=== PATIENT | female | born 1970 | race Caucasian/White ===

== ENCOUNTER 2019-06-17 11:40 | Inpatient (IN) | payer OTHER ==
[~2019-06-17] VITALS: Ht 162.6 cm; Wt 51.0 kg
[~2019-06-17 11:40] MED LIST: CLIN300 PO; DIAZ5; DIAZ5 PO; HYDACE5 PO; METHI10 PO; NAPR500; NAPR500 PO; OXYACE5T PO; OXYACE7.5T PO; PROP80; PROP80ER PO; RXOXYACE PO; TOBDEXOPSU OD; ZOLP10; ZOLP10 PO
[2019-06-17] MEDS ORDERED: Humalog100 UNIT/1 SC (11:58)
[2019-06-17 12:27] LABS: Base Excess Venous -24.7 mmol/L; Bicarbonate Venous 8.9 mmol/L (24.0-30.0); PCO2 Venous 34.2 mmHg (38-42); PO2 Venous 59.6 mmHg (38-42)
[2019-06-17 12:28] LABS: pH Blood Venous 6.95 (7.34-7.37)
[2019-06-17 12:37] LABS: BASOPHILS ABSOLUTE AUTO 0.09 K/mm3 (0.00-0.23); BASOPHILS PERCENT AUTO 0 % (0-2); EOSINOPHILS PERCENT AUTO 0 % (0-6); Hematocrit 53.8 % (33.0-51.0); Hemoglobin 17.8 g/dL (11.5-16.0); IMMATURE GRAN ABSOLUTE AUTO 0.18 K/mm3 (0.00-0.10); IMMATURE GRAN PERCENT AUTO 1 % (0-1); LYMPHOCYTES PERCENT AUTO 6 % (21-46); MONOCYTES ABSOLUTE AUTO 0.62 K/mm3 (0.16-1.47); MONOCYTES PERCENT AUTO 3 % (4-13); Mean Corpuscular HGB 30.8 pg (26.0-34.0); Mean Corpuscular HGB Conc 33.1 g/dL (31.5-36.5); Mean Corpuscular Volume 93 fL (80-100); Mean Platelet Volume 9.8 fL (9.1-12.4); NEUTROPHILS ABSOLUTE AUTO 22.86 K/mm3 (1.96-9.15); NEUTROPHILS PERCENT AUTO 91 % (41-73); Platelet Count 466 K/mm3 (150-400); RDW Coefficient Variation 11.9 % (11.7-14.2); RDW Standard Deviation 40.8 fL (35.1-46.3); Red Blood Cell Count 5.77 M/mm3 (3.80-5.20); White Blood Cell Count 25.25 K/mm3 (4.00-11.30)
[2019-06-17 13:03] LABS: Alanine Aminotransfer (ALT/SGP 57 U/L (12-78); Albumin, Blood 4.6 g/dL (3.4-5.0); Albumin/Globulin Ratio 1.1 (0.8-1.8); Alk Phos 178 U/L (50-136); Anion Gap 30 mmol/L (6-16); Aspartate Aminotrans (AST/SGOT 24 U/L (12-37); Beta-hydroxybutyrate 114.1 mg/dL (0.2-2.8); Bilirubin, Total 0.7 mg/dL (0.1-1.0); Blood Urea Nitrogen 30 mg/dL (8-24); Bun/Creatinine Ratio 31.2 (12.0-20.0); CO2, Blood 8 mmol/L (21-32); Calcium, Blood 10.1 mg/dL (8.5-10.1); Chloride, Blood 91 mmol/L (98-108); Creatinine, Blood 0.96 mg/dL (0.40-1.00); Globulin, Blood 4.1 g/dL (2.2-4.0); Glomerular Filtration Rate >60 (60-); Glucose, Blood 509 mg/dL (70-99); Potassium, Blood 4.3 mmol/L (3.5-5.5); Sodium, Blood 129 mmol/L (136-145); Total Protein, Blood 8.7 g/dL (6.4-8.2)
[2019-06-17] MEDS ORDERED: INSDET100 SC (13:18)
[2019-06-17 14:39] LABS: Source, Urine Clean Catch
[2019-06-17 14:46] LABS: Bilirubin, Urine Neg (Neg); Blood, Urine 3+ (Neg); Glucose Qualitative, Urine 4+ (Neg); Ketones, Urine 4+ (Neg); Leukocyte Esterase, Urine Neg (Neg); Nitrite, Urine Neg (Neg); Protein, Urine 2+ (Neg); Urobilinogen, Urine NORM (Normal)
[2019-06-17 14:53] LABS: Appearance, Urine Clear (Clear); Color, Urine Pale Yellow (P-Yellow)
[2019-06-17 14:54] LABS: White Blood Cells, Urine 0-2 /hpf (0-5)
[2019-06-17 14:55] LABS: Bacteria Rare /hpf; Mucus Light (0-Heavy); Red Blood Cells, Urine 0-2 /hpf (0-2); Squamous Epithelial Cells Few /hpf (Few)
[2019-06-17 15:23] LABS: Magnesium, Blood 1.7 mg/dL (1.6-2.4)
[2019-06-17 15:28] LABS: Anion Gap 26 mmol/L (6-16); Blood Urea Nitrogen 27 mg/dL (8-24); Bun/Creatinine Ratio 36.4 (12.0-20.0); CO2, Blood 7 mmol/L (21-32); Calcium, Blood 8.3 mg/dL (8.5-10.1); Chloride, Blood 104 mmol/L (98-108); Creatinine, Blood 0.74 mg/dL (0.40-1.00); Glomerular Filtration Rate >60 (60-); Glucose, Blood 409 mg/dL (70-99); Potassium, Blood 3.7 mmol/L (3.5-5.5); Sodium, Blood 137 mmol/L (136-145)
[2019-06-17 17:18] LABS: Anion Gap 25 mmol/L (6-16); Blood Urea Nitrogen 26 mg/dL (8-24); Bun/Creatinine Ratio 35.6 (12.0-20.0); CO2, Blood 10 mmol/L (21-32); Calcium, Blood 8.7 mg/dL (8.5-10.1); Chloride, Blood 106 mmol/L (98-108); Creatinine, Blood 0.73 mg/dL (0.40-1.00); Glomerular Filtration Rate >60 (60-); Glucose, Blood 345 mg/dL (70-99); Potassium, Blood 3.7 mmol/L (3.5-5.5); Sodium, Blood 141 mmol/L (136-145)
[2019-06-17 19:13] LABS: Anion Gap 17 mmol/L (6-16); Blood Urea Nitrogen 24 mg/dL (8-24); Bun/Creatinine Ratio 38.8 (12.0-20.0); CO2, Blood 12 mmol/L (21-32); Calcium, Blood 8.7 mg/dL (8.5-10.1); Chloride, Blood 111 mmol/L (98-108); Creatinine, Blood 0.62 mg/dL (0.40-1.00); Glomerular Filtration Rate >60 (60-); Glucose, Blood 266 mg/dL (70-99); Potassium, Blood 3.6 mmol/L (3.5-5.5); Sodium, Blood 140 mmol/L (136-145)
--- NOTE | 2019-06-17 19:58 | NUR ---
SHIFT SUMMARY: NO ACUTE DISTRESS NOTED SINCE ARIVAL TO THE UNIT PT BLOOD SUGARS CONTINUE TO COME DOWN AND LABS APPEAR TO BE IMPROVING. INSULIN DRIPP IS CONTINUEING AT 4 UNITS/HR. NS /C 20KCL IS RUNNING AT 200ML/HR. REPORT GIVEN TO RJ MCKENNA.
[2019-06-17 21:15] LABS: Anion Gap 12 mmol/L (6-16); Blood Urea Nitrogen 20 mg/dL (8-24); Bun/Creatinine Ratio 32.1 (12.0-20.0); CO2, Blood 19 mmol/L (21-32); Calcium, Blood 8.2 mg/dL (8.5-10.1); Chloride, Blood 112 mmol/L (98-108); Creatinine, Blood 0.62 mg/dL (0.40-1.00); Glomerular Filtration Rate >60 (60-); Glucose, Blood 183 mg/dL (70-99); Potassium, Blood 3.5 mmol/L (3.5-5.5); Sodium, Blood 143 mmol/L (136-145)
--- NOTE | 2019-06-17 21:24 | NUR ---
CARE ASSUMED REPORT RECEIVED, CARE ASSUMED AT 1900 FROM BALA ROBERSON. PT REMAINS ON INSULIN DRIP, SEE FLOWSHEET FOR TITRATIONS. NS CHANGED TO D5 1/2 NS WITH POTASSIUM TO MAINTAIN BLOOD SUGARS. BP BORDERLINE, WILL CONTINUE TO MONITOR CLOSELY. OTHERWISE, VITALS STABLE. PT DENIES PAIN/DISCOMFORT, IS VERY DROWSY AND MINIMALLY INTERACTIVE BUT DOES AROUSE WHEN REQUESTED AND IS ORIENTED. STANDBY ASSIST TO BEDSIDE COMMODE FOR URINATION. AGREES TO CALL FOR NEEDS. CALL LIGHT IN REACH.
--- NOTE | 2019-06-17 22:47 | NUR ---
BLOOD PRESSURE PT'S BLOOD PRESSURE BORDERLINE, MULTIPLE MAPS LESS THAN 65. DISCUSSED WITH DR. LEARY. ONE 500 ML BOLUS GIVEN AND BPS IMPROVED.
[2019-06-17 23:04] LABS: Anion Gap 10 mmol/L (6-16); Blood Urea Nitrogen 19 mg/dL (8-24); Bun/Creatinine Ratio 33.8 (12.0-20.0); CO2, Blood 21 mmol/L (21-32); Calcium, Blood 8.2 mg/dL (8.5-10.1); Chloride, Blood 112 mmol/L (98-108); Creatinine, Blood 0.56 mg/dL (0.40-1.00); Glomerular Filtration Rate >60 (60-); Glucose, Blood 179 mg/dL (70-99); Potassium, Blood 3.5 mmol/L (3.5-5.5); Sodium, Blood 143 mmol/L (136-145)
--- NOTE | 2019-06-18 00:56 | NUR ---
BLOOD PRESSURE PT'S MAP'S NOTED TO BE CONSISTENTLY IN HIGH 50'S. PT CONTINUES TO BE DROWSY, BUT AROUSES WITH VERBAL STIMULI, IS ORIENTED, FOLLOWS COMMANDS AND IS ABLE TO SIT NEEDED. DR. REIS NOTIFIED OF DECREASED MAP'S. NEW ORDER RECEIVED.
[2019-06-18 01:13] LABS: Anion Gap 8 mmol/L (6-16); Blood Urea Nitrogen 17 mg/dL (8-24); Bun/Creatinine Ratio 37.4 (12.0-20.0); CO2, Blood 21 mmol/L (21-32); Calcium, Blood 8.2 mg/dL (8.5-10.1); Chloride, Blood 111 mmol/L (98-108); Creatinine, Blood 0.45 mg/dL (0.40-1.00); Glomerular Filtration Rate >60 (60-); Glucose, Blood 178 mg/dL (70-99); Potassium, Blood 3.3 mmol/L (3.5-5.5); Sodium, Blood 140 mmol/L (136-145)
[2019-06-18 03:19] LABS: BASOPHILS ABSOLUTE AUTO 0.02 K/mm3 (0.00-0.23); BASOPHILS PERCENT AUTO 0 % (0-2); EOSINOPHILS PERCENT AUTO 0 % (0-6); Hematocrit 36.9 % (33.0-51.0); IMMATURE GRAN ABSOLUTE AUTO 0.08 K/mm3 (0.00-0.10); IMMATURE GRAN PERCENT AUTO 0 % (0-1); LYMPHOCYTES ABSOLUTE AUTO 3.01 K/mm3 (0.84-5.20); LYMPHOCYTES PERCENT AUTO 16 % (21-46); MONOCYTES ABSOLUTE AUTO 1.09 K/mm3 (0.16-1.47); MONOCYTES PERCENT AUTO 6 % (4-13); Mean Corpuscular HGB 30.5 pg (26.0-34.0); Mean Corpuscular HGB Conc 35.2 g/dL (31.5-36.5); Mean Corpuscular Volume 87 fL (80-100); NEUTROPHILS ABSOLUTE AUTO 14.38 K/mm3 (1.96-9.15); NEUTROPHILS PERCENT AUTO 77 % (41-73); Platelet Count 296 K/mm3 (150-400); RDW Coefficient Variation 11.8 % (11.7-14.2); RDW Standard Deviation 37.3 fL (35.1-46.3); Red Blood Cell Count 4.26 M/mm3 (3.80-5.20); White Blood Cell Count 18.58 K/mm3 (4.00-11.30)
[2019-06-18 03:40] LABS: Anion Gap 8 mmol/L (6-16); Blood Urea Nitrogen 16 mg/dL (8-24); Bun/Creatinine Ratio 31.2 (12.0-20.0); CO2, Blood 23 mmol/L (21-32); Calcium, Blood 8.3 mg/dL (8.5-10.1); Chloride, Blood 110 mmol/L (98-108); Creatinine, Blood 0.51 mg/dL (0.40-1.00); Glomerular Filtration Rate >60 (60-); Glucose, Blood 152 mg/dL (70-99); Potassium, Blood 3.2 mmol/L (3.5-5.5); Sodium, Blood 141 mmol/L (136-145)
--- NOTE | 2019-06-18 05:22 | NUR ---
BLOOD PRESSURE PT'S MAP CONTINUE TO BE HIGH 50'S AND LOW 60'S. PT DROWSY, BUT AROUSES AND ORIENTED. PT HAS BEEN UP TO BEDSIDE COMMODE WITH NO DIZZINESS OR SHORTNESS OF BREATH. HR STABLE. DR. REIS UPDATED, WILL CONTINUE TO MONITOR CLOSELY.
--- NOTE | 2019-06-18 06:21 | NUR ---
SUMMARY SEE LABS FOR DKA PROGRESS. CONTINUED WITH INSULIN DRIP AND D5 1/2 NS WITH POTASSIUM TO MAINTAIN UNTIL MORNING LONG ACTING INSULIN DOSE. PT CONTINUES TO BE DROWSY BUT AROUSES EASILY AND IS ORIENTED AND APPROPRIATE. VITALS CONTINUE TO BE STABLE WITH BORDERLINE BLOOD PRESSURE DISCUSSED PREVIOUSLY. INCREASED FLUIDS PER ORDERS TO MANAGE PRESSURES. SEE FLOWSHEETS/EMAR FOR DETAILS.
--- NOTE | 2019-06-18 07:15 | NUR ---
REPORT TO BALA ROBERSON TO ASSUME CARE.
--- NOTE | 2019-06-18 10:30 | NUR ---
INSULIN & D5W1/2NS /C KCL OFF AT THIS TIME
[2019-06-18 12:33] LABS: Anion Gap 7 mmol/L (6-16); Blood Urea Nitrogen 12 mg/dL (8-24); Bun/Creatinine Ratio 27.3 (12.0-20.0); CO2, Blood 24 mmol/L (21-32); Calcium, Blood 8.8 mg/dL (8.5-10.1); Chloride, Blood 106 mmol/L (98-108); Creatinine, Blood 0.44 mg/dL (0.40-1.00); Glomerular Filtration Rate >60 (60-); Glucose, Blood 268 mg/dL (70-99); Magnesium, Blood 1.6 mg/dL (1.6-2.4); Potassium, Blood 3.9 mmol/L (3.5-5.5); Sodium, Blood 137 mmol/L (136-145)
--- NOTE | 2019-06-18 13:10 | NUR ---
ASSUMED CARE: PT RESTING QUIETLY IN BED, NO ACUTE DISTRESS OR NEEDS NOTED.
--- NOTE | 2019-06-18 16:56 | NUR ---
HANDED OFF CARE TO BALA PAULA. PT HAS BEEN RESTING QUIETLY THIS SHIFT, NS @125 RUNNING. PT HAS BEEN DROWSY AND RESTING BUT ALERT AND ORIENTED AND FOLLOWING DIRECTIONS.
--- NOTE | 2019-06-18 19:14 | NUR ---
Assumed care of the patient at time of transfer from ICU 14 to PCU 6. She is alert, oriented, not very talkative, but appropriate. Seems that she is more interested in napping than other activities. Sat up in bed for dinner, but declined to sit on the side of the bed or to sit in the chair for the meal. Ambulatory to the bathroom with minimal assistace due to the IV pole with continuous IV fluid infusion. Taking in p.o. fluids and food with good appetite. No c/o pain or discomfort.
[2019-06-19 03:56] LABS: BASOPHILS ABSOLUTE AUTO 0.01 K/mm3 (0.00-0.23); BASOPHILS PERCENT AUTO 0 % (0-2); EOSINOPHILS ABSOLUTE AUTO 0.04 K/mm3 (0.00-0.68); EOSINOPHILS PERCENT AUTO 1 % (0-6); Hematocrit 34.3 % (33.0-51.0); Hemoglobin 11.9 g/dL (11.5-16.0); IMMATURE GRAN ABSOLUTE AUTO 0.01 K/mm3 (0.00-0.10); IMMATURE GRAN PERCENT AUTO 0 % (0-1); LYMPHOCYTES ABSOLUTE AUTO 2.53 K/mm3 (0.84-5.20); LYMPHOCYTES PERCENT AUTO 29 % (21-46); MONOCYTES ABSOLUTE AUTO 0.39 K/mm3 (0.16-1.47); MONOCYTES PERCENT AUTO 5 % (4-13); Mean Corpuscular HGB 30.8 pg (26.0-34.0); Mean Corpuscular HGB Conc 34.7 g/dL (31.5-36.5); Mean Corpuscular Volume 89 fL (80-100); Mean Platelet Volume 9.4 fL (9.1-12.4); NEUTROPHILS ABSOLUTE AUTO 5.78 K/mm3 (1.96-9.15); NEUTROPHILS PERCENT AUTO 66 % (41-73); Platelet Count 205 K/mm3 (150-400); RDW Coefficient Variation 11.9 % (11.7-14.2); RDW Standard Deviation 38.3 fL (35.1-46.3); Red Blood Cell Count 3.86 M/mm3 (3.80-5.20); White Blood Cell Count 8.76 K/mm3 (4.00-11.30)
[2019-06-19 04:17] LABS: Anion Gap 5 mmol/L (6-16); Blood Urea Nitrogen 8 mg/dL (8-24); Bun/Creatinine Ratio 21.4 (12.0-20.0); CO2, Blood 29 mmol/L (21-32); Calcium, Blood 8.8 mg/dL (8.5-10.1); Chloride, Blood 108 mmol/L (98-108); Creatinine, Blood 0.37 mg/dL (0.40-1.00); Glomerular Filtration Rate >60 (60-); Glucose, Blood 155 mg/dL (70-99); Potassium, Blood 3.2 mmol/L (3.5-5.5); Sodium, Blood 142 mmol/L (136-145)
--- NOTE | 2019-06-19 06:10 | NUR ---
END OF SHIFT SUMMARY PT ALERT AND ORIENTED T/O SHIFT, WITHDRAW,. PT HAS NOT SPOKEN MUCH WITH THIS RN. PT HAS STATED FEELING VERY WEAK. PT EXTREMELY THIRSTY AND HAS VOIDED LARGE AMOUNTS OF URINE. LUNGS CLEAR T/O. HEART MURMUR PRESEMNT. PT HAS PRESENTED WITH KAVYAN, UPON LOOKING AT VS HX, THIS FOLLOWS THE SAME TREND OT HAS. LAST BP DID SHOW IMPROVEMENT@ 105/59. PT CONTINUES TO RECEIVE IV FLUIDS. RECEIVING INSULIN ACHS. CBG SHOWING IMPROVEMENT, 100;S TO 200'S. PT USES CALL LIGHT APPROPRIATELY. CALL LIGHT WITHIN REACH. CHARLIE LCONTINUE TO MONITOR PT UNTIL SHIFT CHANGE.
--- NOTE | 2019-06-19 07:21 | NUR ---
ASSUMED CARE: PT RESTING QUIETLY IN BED. NO ACUTE NEEDS OR CONCERNS NOTED AT THIS TIME
[2019-06-19] MEDS ORDERED: ACET325 PO (09:13)
--- NOTE | 2019-06-19 10:55 | NUR ---
PT'S DAUGHTER DID NOT BRING PT'S HOME GLUCOSE MONITOR. CALL TO DR HIGGINS TO MAKE HER AWARE. DR WROTE NEW SCRIPT FOR GLUCOSE METER. PT MADE AWARE TO ESTABLISH PCP AND FOLLOW UP WITH DR BROWN. MEDICATIONS CALLED TO [facility]. TAX APPRAISER VERIFIED THAT PT USES PENS AT HOME AND HAS NEEDLES AVAILABLE. IV'S DC'D WNL.
== END 2019-06-19 10:41 | disposition home or self-care (01) | DRG 638 ==
LOC: ER 11:40 → ICUW 13:56 → MEDS 13:56 → PCU 14:55 → ICUW 14:59 → PCU 06-18 17:25
PROVIDERS: Emergency Medicine; Internal Medicine; ADMIT Hospitalist
DX: E11.10 Type 2 diabetes mellitus with ketoacidosis without coma (principal); E87.1 Hypo-osmolality and hyponatremia; E11.65 Type 2 diabetes mellitus with hyperglycemia; E87.6 Hypokalemia; E86.1 Hypovolemia; I95.9 Hypotension, unspecified; F17.210 Nicotine dependence, cigarettes, uncomplicated; Z79.4 Long term (current) use of insulin
CPT/HCPCS: 36415; 80048; 80053; 81001; 82010; 82803; 82947; 83036; 83735; 85025; 93005; 93010; 96361; 96374; 99285-25; J1650; J1815; J2405; J3480; J7030; J7040; J7120

== ENCOUNTER → 2019-12-22 | Outpatient (CLI) | payer OTHER ==
[~2019-12-22] MED LIST changes: +ACET325 PO; +Humalog100 UNIT/1 SC; +INSDET100 SC
== END ==
LOC: OLS 11:08 → LAB SHORT 11:08
DX: E10.65 Type 1 diabetes mellitus with hyperglycemia (principal)
CPT/HCPCS: 82043

== ENCOUNTER → 2020-04-02 | Outpatient (CLI) | payer OTHER ==
[2020-04-23 04:39] LABS: HPV 16 Negative (Negative); HPV 18 Negative (Negative); HPV OTHER HR TYPES Negative (Negative)
== END ==
LOC: LAB SHORT 15:42 → LAB 15:42
PROVIDERS: Student in an Organized Health Care Education/Training Program
DX: Z01.419 Encounter for gynecological examination (general) (routine) without abnormal findings (principal)
CPT/HCPCS: 87624; G0123

== ENCOUNTER 2021-06-23 09:48 | Inpatient (IN) | payer OTHER ==
[~2021-06-23] VITALS: Ht 162.6 cm; Wt 57.7 kg
[~2021-06-23 09:48] MED LIST changes: +HUMALOG KW100 UNIT/1 SC; -Humalog100 UNIT/1 SC; -INSDET100 SC; +LEVEMIR FL100 UNIT/2 SC
[2021-06-23] MEDS ORDERED: EUTHYROX50 MC1 PO (10:21)
[2021-06-23 10:54] LABS: Bicarbonate Venous 6.7 mmol/L (24.0-30.0); PCO2 Venous 17.9 mmHg (38-42); PO2 Venous 153 mmHg (38-42); pH Blood Venous 6.86 (7.34-7.37)
[2021-06-23 10:55] LABS: BASOPHILS ABSOLUTE AUTO 0.04 K/mm3 (0.00-0.23); BASOPHILS PERCENT AUTO 0 % (0-2); EOSINOPHILS PERCENT AUTO 0 % (0-6); Hematocrit 50.1 % (33.0-51.0); Hemoglobin 15.9 g/dL (11.5-16.0); IMMATURE GRAN ABSOLUTE AUTO 0.09 K/mm3 (0.00-0.10); IMMATURE GRAN PERCENT AUTO 1 % (0-1); LYMPHOCYTES ABSOLUTE AUTO 0.72 K/mm3 (0.84-5.20); LYMPHOCYTES PERCENT AUTO 4 % (21-46); MONOCYTES ABSOLUTE AUTO 0.83 K/mm3 (0.16-1.47); MONOCYTES PERCENT AUTO 5 % (4-13); Mean Corpuscular HGB 29.8 pg (26.0-34.0); Mean Corpuscular HGB Conc 31.7 g/dL (31.5-36.5); Mean Corpuscular Volume 94 fL (80-100); Mean Platelet Volume 9.7 fL (9.1-12.4); NEUTROPHILS ABSOLUTE AUTO 14.96 K/mm3 (1.96-9.15); NEUTROPHILS PERCENT AUTO 90 % (41-73); Platelet Count 420 K/mm3 (150-400); Red Blood Cell Count 5.34 M/mm3 (3.80-5.20); White Blood Cell Count 16.64 K/mm3 (4.00-11.30)
[2021-06-23 10:55] LABS: Base Excess Venous -30.3 mmol/L
[2021-06-23 11:12] LABS: Troponin I <0.015 ng/mL (0.000-0.040)
[2021-06-23 11:38] LABS: Alanine Aminotransfer (ALT/SGP 28 U/L (12-78); Albumin, Blood 4.2 g/dL (3.4-5.0); Albumin/Globulin Ratio 1.1 (0.8-1.8); Alk Phos 150 U/L (50-136); Anion Gap 31 mmol/L (6-16); Aspartate Aminotrans (AST/SGOT 20 U/L (12-37); Beta-hydroxybutyrate 117.7 mg/dL (0.2-2.8); Bilirubin, Total 0.6 mg/dL (0.1-1.0); Blood Urea Nitrogen 14 mg/dL (8-24); Bun/Creatinine Ratio 15.7 (12.0-20.0); CO2, Blood 3 mmol/L (21-32); Calcium, Blood 9.9 mg/dL (8.5-10.1); Chloride, Blood 91 mmol/L (98-108); Creatinine, Blood 0.89 mg/dL (0.40-1.00); Globulin, Blood 3.7 g/dL (2.2-4.0); Glomerular Filtration Rate >60 (60-); Glucose, Blood 520 mg/dL (70-99); Potassium, Blood 3.9 mmol/L (3.5-5.5); Sodium, Blood 125 mmol/L (136-145); Total Protein, Blood 7.9 g/dL (6.4-8.2)
[2021-06-23 11:55] LABS: SARS-Cov-2 (COVID-19) PCR, MMC NEGATIVE (NEGATIVE)
[2021-06-23 13:50] LABS: Anion Gap 28 mmol/L (6-16); Blood Urea Nitrogen 13 mg/dL (8-24); Bun/Creatinine Ratio 17.7 (12.0-20.0); CO2, Blood 5 mmol/L (21-32); Calcium, Blood 8.2 mg/dL (8.5-10.1); Chloride, Blood 100 mmol/L (98-108); Creatinine, Blood 0.73 mg/dL (0.40-1.00); Glomerular Filtration Rate >60 (60-); Glucose, Blood 367 mg/dL (70-99); Potassium, Blood 3.3 mmol/L (3.5-5.5); Sodium, Blood 133 mmol/L (136-145)
[2021-06-23 14:24] LABS: Source, Urine Clean Catch
[2021-06-23 14:36] LABS: Appearance, Urine Clear (Clear); Bilirubin, Urine Neg (Neg); Blood, Urine 4+ (Neg); Color, Urine Yellow (P-Yellow); Glucose Qualitative, Urine 4+ (Neg); Ketones, Urine 4+ (Neg); Leukocyte Esterase, Urine Neg (Neg); Nitrite, Urine Neg (Neg); Protein, Urine 2+ (Neg); Specific Gravity, Urine 1.025 (1.003-1.022); Urobilinogen, Urine NORM (Normal)
[2021-06-23 14:56] LABS: Bacteria Rare /hpf; Red Blood Cells, Urine 0-2 /hpf (0-2); Squamous Epithelial Cells Few /hpf (Few); White Blood Cells, Urine Rare /hpf (0-5)
[2021-06-23 16:38] LABS: Magnesium, Blood 1.4 mg/dL (1.6-2.4)
[2021-06-23 16:39] LABS: Anion Gap 20 mmol/L (6-16); Blood Urea Nitrogen 12 mg/dL (8-24); Bun/Creatinine Ratio 17.9 (12.0-20.0); CO2, Blood 8 mmol/L (21-32); Calcium, Blood 8.3 mg/dL (8.5-10.1); Chloride, Blood 108 mmol/L (98-108); Creatinine, Blood 0.67 mg/dL (0.40-1.00); Glomerular Filtration Rate >60 (60-); Glucose, Blood 218 mg/dL (70-99); Potassium, Blood 3.5 mmol/L (3.5-5.5); Sodium, Blood 136 mmol/L (136-145)
[2021-06-23 19:09] LABS: Anion Gap 13 mmol/L (6-16); Blood Urea Nitrogen 10 mg/dL (8-24); Bun/Creatinine Ratio 16.6 (12.0-20.0); CO2, Blood 16 mmol/L (21-32); Calcium, Blood 8.4 mg/dL (8.5-10.1); Chloride, Blood 109 mmol/L (98-108); Glomerular Filtration Rate >60 (60-); Glucose, Blood 186 mg/dL (70-99); Potassium, Blood 3.3 mmol/L (3.5-5.5); Sodium, Blood 138 mmol/L (136-145)
--- NOTE | 2021-06-23 22:00 | NUR ---
INSULIN GTT SPOKE WITH OFELIA QUINTANA TO TITRATE INSULIN GTT PER NORMAL DKA ORDERS.
[2021-06-23 22:52] LABS: Anion Gap 9 mmol/L (6-16); Blood Urea Nitrogen 9 mg/dL (8-24); Bun/Creatinine Ratio 16.1 (12.0-20.0); CO2, Blood 22 mmol/L (21-32); Calcium, Blood 8.5 mg/dL (8.5-10.1); Chloride, Blood 107 mmol/L (98-108); Creatinine, Blood 0.56 mg/dL (0.40-1.00); Glomerular Filtration Rate >60 (60-); Glucose, Blood 148 mg/dL (70-99); Potassium, Blood 2.9 mmol/L (3.5-5.5); Sodium, Blood 138 mmol/L (136-145)
[2021-06-24 04:16] LABS: BASOPHILS PERCENT AUTO 0 % (0-2); EOSINOPHILS PERCENT AUTO 0 % (0-6); Hematocrit 34.2 % (33.0-51.0); IMMATURE GRAN ABSOLUTE AUTO 0.06 K/mm3 (0.00-0.10); IMMATURE GRAN PERCENT AUTO 1 % (0-1); LYMPHOCYTES ABSOLUTE AUTO 1.46 K/mm3 (0.84-5.20); LYMPHOCYTES PERCENT AUTO 12 % (21-46); MONOCYTES PERCENT AUTO 7 % (4-13); Mean Corpuscular HGB Conc 35.1 g/dL (31.5-36.5); Mean Platelet Volume 9.2 fL (9.1-12.4); NEUTROPHILS ABSOLUTE AUTO 9.46 K/mm3 (1.96-9.15); NEUTROPHILS PERCENT AUTO 80 % (41-73); Platelet Count 230 K/mm3 (150-400); RDW Coefficient Variation 12.6 % (11.7-14.2); White Blood Cell Count 11.78 K/mm3 (4.00-11.30)
[2021-06-24 04:46] LABS: Magnesium, Blood 1.5 mg/dL (1.6-2.4)
[2021-06-24 04:47] LABS: Mean Corpuscular Volume 86 fL (80-100)
[2021-06-24 05:13] LABS: Alanine Aminotransfer (ALT/SGP 18 U/L (12-78); Albumin, Blood 2.7 g/dL (3.4-5.0); Albumin/Globulin Ratio 1.2 (0.8-1.8); Alk Phos 89 U/L (50-136); Anion Gap 8 mmol/L (6-16); Aspartate Aminotrans (AST/SGOT 15 U/L (12-37); Bilirubin, Total 0.4 mg/dL (0.1-1.0); Blood Urea Nitrogen 8 mg/dL (8-24); Bun/Creatinine Ratio 15.2 (12.0-20.0); CO2, Blood 21 mmol/L (21-32); Calcium, Blood 8.5 mg/dL (8.5-10.1); Chloride, Blood 108 mmol/L (98-108); Creatinine, Blood 0.53 mg/dL (0.40-1.00); Globulin, Blood 2.3 g/dL (2.2-4.0); Glomerular Filtration Rate >60 (60-); Glucose, Blood 179 mg/dL (70-99); Potassium, Blood 3.4 mmol/L (3.5-5.5); Sodium, Blood 137 mmol/L (136-145)
--- NOTE | 2021-06-24 07:26 | NUR ---
SHIFT SUMMARY PATIENT REMAINED ON INSULIN GTT; DECREASED TO 1 UNIT/HR BY END OF SHIFT WITH GLUCOSE LEVELS <210. PATIENT USED BEDPAN TO VOID AND WAS ABLE TO USE CALL LIGHT TO MAKE NEEDS KNOWN TO STAFF. NO OTHER CHANGES DURING SHIFT.
[2021-06-24 15:47] LABS: Anion Gap 7 mmol/L (6-16); Blood Urea Nitrogen 9 mg/dL (8-24); Bun/Creatinine Ratio 11.2 (12.0-20.0); CO2, Blood 24 mmol/L (21-32); Calcium, Blood 9.1 mg/dL (8.5-10.1); Chloride, Blood 106 mmol/L (98-108); Creatinine, Blood 0.81 mg/dL (0.40-1.00); Glomerular Filtration Rate >60 (60-); Glucose, Blood 170 mg/dL (70-99); Potassium, Blood 2.9 mmol/L (3.5-5.5); Sodium, Blood 137 mmol/L (136-145)
--- NOTE | 2021-06-24 16:29 | NUR ---
ADMIT: 06/23/21 DISCHARGE: DX: DKA CC: [email or web address] CALL: Hospital f/u appt by phone 06/26/21 @ 1020 [id number]: Home with spouseCAREGIVER: Aaron Falcon, Spouse / Partner, DX: hypothyroidism, DM-type 1DME: DM suppliesCC[facility] HEALTH: noneSUMMARY: 06/24/21- spoke with over the phone who reports that pt was independent prior to coming to the hospital. She lives at home with her in a single-story home with working utilities. There is 1-step to get into the home and no concerns going home. will pick pt up when she is ready to discharge. Pt uses either mail order pharmacy or [facility]. reports that she ran out of her long-acting insulin, called the clinic and there are no samples. Notified Dr. Bay of this, she will write Rx for pt to fill. states they have no DME or care needs at this time. Called and notify floor nurse of above information. Per floor nurse, pt will discharge tomorrow morning due to recent lab work, Dr. Bay has been notified. -jazz
--- NOTE | 2021-06-24 18:09 | NUR ---
SBAR REPORT MICARN
--- NOTE | 2021-06-24 18:10 | NUR ---
PT SUMMARY: PT CHANGED TO MEDICAL STATUS WITH TELE. PT HAS BEEN OFF OF INSULIN GTT SINCE 1500, HUMALOG ORDERED FOR SS AND 10U BOLUS WITH MEALS. PT RESUMED DIET AND HAS BEEN EATING GOOD NOT COMPLAINING OF NAUSEA. PT HAS BEEN AMBULATING TO THE BATHROOM BP SYSTOLIC ON THE 90-110'S, DENIES ANY DIZZINESS WITH MOBILITY. ON RA, AFEBRILE, HR SINUS ON TELE 60-80'S. PT ALERT AND ORIENTED CALLS APPROPRIATELY. POTASSIUM AT 2.9 PER RECENT LAB REPLACED WITH 40MEQ PO, WILL RECHECK PER LAB ORDER TONIGHT. PT TO TRANSFER TO ROOM 305, REPORT GIVEN TO BALAJI MCKENNA, AWAITING TIL ROOM IS CLEANED AT THIS TIME WILL TRANSFER THEREAFTER
--- NOTE | 2021-06-24 19:52 | NUR ---
transfer report from Briana sinclair RN on PCU transfer with DKA. Will be on tele with BG monitoring. Await transfer from PCU 09.
[2021-06-24 21:48] LABS: Anion Gap 5 mmol/L (6-16); Blood Urea Nitrogen 9 mg/dL (8-24); Bun/Creatinine Ratio 14.2 (12.0-20.0); CO2, Blood 28 mmol/L (21-32); Calcium, Blood 9.6 mg/dL (8.5-10.1); Chloride, Blood 104 mmol/L (98-108); Creatinine, Blood 0.63 mg/dL (0.40-1.00); Glomerular Filtration Rate >60 (60-); Glucose, Blood 236 mg/dL (70-99); Potassium, Blood 3.5 mmol/L (3.5-5.5); Sodium, Blood 137 mmol/L (136-145)
[2021-06-25 05:56] LABS: Anion Gap 13 mmol/L (6-16); Blood Urea Nitrogen 9 mg/dL (8-24); Bun/Creatinine Ratio 14.9 (12.0-20.0); CO2, Blood 20 mmol/L (21-32); Calcium, Blood 9.3 mg/dL (8.5-10.1); Chloride, Blood 101 mmol/L (98-108); Creatinine, Blood 0.61 mg/dL (0.40-1.00); Glomerular Filtration Rate >60 (60-); Glucose, Blood 348 mg/dL (70-99); Potassium, Blood 3.9 mmol/L (3.5-5.5); Sodium, Blood 134 mmol/L (136-145)
--- NOTE | 2021-06-25 12:52 | NUR ---
1235: D/C HOME. ALL QUESTIONS ANSWERED. TEACHBACK METHOD UTILIZED. PATIENT'S PICKED UP LONG ACTING INSULIN FROM OUTPT PHARMACY, PER PT. ALL PERSONAL BELONGINGS SENT WITH PT.
--- NOTE | 2021-06-25 15:54 | NUR ---
06/25/21- PT DISCHARGE HOME. FOLLOW UP APPT CREATED. CLINIC HAS NO SAMPLES OF LEVEMIR. CONTACTED DR. BROWN'S STAFF ABOUT ASSISTANCE FOR PT. PT WILL NEED TO FOLLOW UP WITH DR. BROWN IN ADDITION TO HOSPITAL F/U APPT. -NICOLÁSB
== END 2021-06-25 12:38 | disposition home or self-care (01) | DRG 639 ==
LOC: ER 09:48 → ERHOLD 12:00 → PCU 17:37 → MEDS 06-24 20:17
PROVIDERS: Emergency Medicine; Family Medicine; Student in an Organized Health Care Education/Training Program; ADMIT Family Medicine
DX: E10.10 Type 1 diabetes mellitus with ketoacidosis without coma (principal); E87.6 Hypokalemia; E03.9 Hypothyroidism, unspecified; Z20.822 Contact with and (suspected) exposure to COVID-19; Z79.4 Long term (current) use of insulin; Z79.899 Other long term (current) drug therapy; Z88.8 Allergy status to other drugs, medicaments and biological substances; Z98.890 Other specified postprocedural states
CPT/HCPCS: 36415; 80048; 80053; 81001; 82010; 82803; 82947; 83735; 84484; 85025; 93005; 93010; 96365; 96366; 96375; 99285-25; A9270; J1650; J1815; J2405; J3480; J7030; J7120; U0004

== ENCOUNTER → 2021-08-06 | Outpatient (CLI) | payer OTHER ==
[~2021-08-06] MED LIST changes: +EUTHYROX50 MC1 PO
[2021-08-08 16:35] LABS: CORONAVIRUS (COVID19) CSH-NRL Positive (Negative)
== END ==
LOC: LAB 16:34 → LAB SHORT 16:34
PROVIDERS: Chiropractor
DX: U07.1 COVID-19 (principal); Z88.8 Allergy status to other drugs, medicaments and biological substances
CPT/HCPCS: U0003